=== PATIENT | female | born 1995 | race Two or more races ===

== ENCOUNTER 2024-11-22 08:33 | Inpatient (IN) ==
[2024-11-22 08:44] VITALS: BMI 21.1
[2024-11-22] MEDS: LR 1,000 ML IV 1,000 ML IV SCH (09:05)
[2024-11-22 09:16] LABS: AMNISURE ROM TEST NO MEMBRANES RUPTURE (NO RUPTURE)
[2024-11-22] MEDS ORDERED: ZOFRAN INJ 4 MG VIAL IVP PRN (09:38)
[2024-11-22] MEDS ORDERED: REGLAN INJ 10 MG VIAL IVP PRN (09:38)
[2024-11-22] MEDS: NUBAIN INJ 20 MG AMP IVP PRN (09:43)
[2024-11-22 10:11] LABS: BLOOD UREA NITROGEN 6 mg/dL (7-18); CALCIUM 9.1 mg/dL (8.5-10.1); CARBON DIOXIDE 22.9 mmol/L (21-32); CHLORIDE 102 mmol/L (98-107); CREATININE 0.79 mg/dL (0.55-1.02); GLUCOSE 82 mg/dL (65-99); POTASSIUM 3.7 mmol/L (3.5-5.1); SODIUM 138 mmol/L (136-145); eGFR NON BLACK RACES > 60 (>60)
[2024-11-22 10:44] LABS: BASOPHILS % (AUTO) 0.8 % (0.2-1.0); EOSINOPHILS % (AUTO) 0.2 % (0.9-2.9); HEMATOCRIT 28.3 % (36.0-47.0); LYMPHOCYTES # (AUTO) 3.7 X10^3/uL (1.3-2.9); LYMPHOCYTES % (AUTO) 61.8 % (21.0-51.0); MEAN CORPUSCULAR HEMOGLOBIN 16.3 pg (27.0-34.0); MEAN CORPUSCULAR HGB CONC 28.4 g/dL (33.0-35.0); MEAN CORPUSCULAR VOLUME 57.5 fL (80.0-100.0); MEAN PLATELET VOLUME 10.3 fL (7.4-11.0); MONOCYTES # (AUTO) 0.3 x10^3/uL (0.3-0.8); MONOCYTES % (AUTO) 5.4 % (0.0-13.0); NEUTROPHILS # (AUTO) 1.9 x10^3/uL (2.2-4.8); NEUTROPHILS % (AUTO) 31.8 % (42.0-75.0); PLATELET COUNT 104 X10^3/uL (150.0-450.0); RED BLOOD COUNT 4.92 X10^6/uL (3.5-5.4); RED CELL DISTRIBUTION WIDTH 33.4 % (11.6-16.5)
[2024-11-22 10:54] LABS: HYPOCHROMASIA 3+; PLATELET MORPHOLOGY COMMENT NORMAL (NORMAL); POIKILOCYTOSIS 1+
[2024-11-22 10:55] LABS: ANISOCYTOSIS 3+; MICROCYTOSIS 3+; SCHISTOCYTES SLIGHT
[2024-11-22] MEDS: OXYTOCIN 20 UNIT/1,000 ML-NS 20 UNIT/1,000 ML PLAST..BAG IV PRN (11:05)
[2024-11-22] MEDS: BETADINE SOLN ONE (15:48)
[2024-11-22] MEDS: PITOCIN IVP ONE (15:55)
[2024-11-22] MEDS: NUBAIN INJ 10 MG AMP ONE ×2 (16:25)
[2024-11-22] MEDS: LR 1,000 ML IV 1,000 ML IV ONE (16:26)
[2024-11-22] MEDS: PITOCIN ONE (16:26)
[2024-11-22] MEDS ORDERED: MILK OF MAGNESIA PO PRN (16:48)
[2024-11-22] MEDS: OXYTOCIN 20 UNIT/1,000 ML-NS 20 UNIT/1,000 ML PLAST..BAG IV SCH (16:55)
[2024-11-22] MEDS: NS 100 ML IV 100 ML with VENOFER 400 MG IV SCH (18:00)
[2024-11-22] MEDS: MOTRIN TAB 800 MG PO PRN (19:45)
[2024-11-22] MEDS: DERMOPLAST PAIN RELIEF SPRAY TOP PRN (21:30)
[2024-11-22] MEDS: BENADRYL INJ 50 MG VIAL IVP ONE (22:15)
[2024-11-23 05:45] LABS: HEMATOCRIT 26.1 % (36.0-47.0); HEMOGLOBIN 7.2 g/dL (12.0-16.0)
[2024-11-23] MEDS: PRENATAL PLUS PO SCH (08:49)
[2024-11-23] MEDS: NS 100 ML IV 100 ML with VENOFER 400 MG IV SCH (17:40)
[2024-11-24 04:35] VITALS: O2SAT 100
[2024-11-24 11:57] VITALS: BP 112/56; PULSE 78; RESP 17; TEMP 97.3
== END 2024-11-24 12:50 | disposition home or self-care (01) | DRG 807 ==
LOC: ER 08:33 → LD 08:56 → MED/SURG 17:33
PROVIDERS: ADMIT Obstetrics & Gynecology Obstetrics; ATTEND Obstetrics & Gynecology Obstetrics
DX: O70.1 Second degree perineal laceration during delivery; Z37.0 Single live birth; Z3A.39 39 weeks gestation of pregnancy; O26.893 Other specified pregnancy related conditions, third trimester